=== PATIENT | male | born 1955 | race Caucasian/White ===

== ENCOUNTER → 2025-02-15 12:01 | Outpatient (REF) | payer BC, SELFPAY | LOC: RAD 12:01 | PROVIDERS: ATTENDING PHYSICIAN Surgery Vascular Surgery; FAMILY PHYSICIAN Internal Medicine | DX: I71.43 Infrarenal abdominal aortic aneurysm, without rupture (principal); I72.3 Aneurysm of iliac artery | CPT/HCPCS: 74174; Q9967 ==